=== PATIENT | female | born 2000 | race Caucasian/White ===

== ENCOUNTER 2024-10-22 13:23 | Outpatient (CLI) | payer OTHER, SELFPAY ==
--- OUTSIDE RECORDS SUMMARY | 2024-10-22 13:35 | XMS_ITS | Clinical Summary ---
Author [place] [facility] [place] [address] [place] [address] [address] Address [address] [place] [address] Care Team Providers Care Transport Driver Name Role Phone Brando Rivas MD Primary Care Provider + Allergies Active Allergy Reactions Criticality Noted Date Comments Iodine Itching Low 02/19/2024 Shellfish Nausea only Low 11/13/[address] (PROTONIX) 40 mg EC tablet Take 1 tablet (40 mg total) by mouth daily 30 tablet 11 04/01/2024 Active loratadine (CLARITIN) 10 mg tablet Take 1 tablet (10 mg total) by mouth daily Active ALPRAZolam (XANAX) 0.25 mg tablet 06/24/2024 Active Active Problems Problem Noted Date Diagnosed Date Diaphragmatic hernia with obstruction 03/05/2024 Diaphragmatic hernia with obstruction, without g angrene 02/19/2024 Assessment & Plan (02/19/2024 10:52 AM CDT): Even though she was a small hiatal hernia seen on the scan I favor the symptoms are less likely attributed to this. She was going to bring us the disc so that we can load them and review them ourselves. If the HIDA scan is normal this will leave us in a difficult position of what to do. I have brought up performing an EGD to look for signs of reflux disease or irritation from the small hernia as well as peptic ulcer disease as a cause of the pain. If height and EGD are both normal then we will have to make a tough call about removing the gallbladder as she has fairly classic symptoms for it versus further working up the hiatal hernia and addressing them both at the same time. She was in understanding of the plan. Epigastric pain 02/19/2024 Assessment & Plan (02/19/2024 10:51 AM CDT): The relationship to food as well as , epigastric pain, bloating nausea all leads me to believe that this may be secondary to gallbladder pathology. She states having an ultrasound that was normal so we will begin by ordering a HIDA scan. Once these results returned we will discuss further course of action with the patient Surgical History Surgery Date Site/Laterality Comments TONSILLECTOMY Tonsillectomy OTHER SURGICAL HISTORY right hip arthroscopy TONSILLECTOMY/ADENOIDECTOMY 06/11/2012 - 06/10/2013 OTHER SURGICAL HISTORY Bilateral fallopian tubes removed Family History Medical History Relation Name Comments Arthritis Other Family history of Arthritis; Cancer Other Family history of Cancer, unknown; Diabetes type II Other Family hist ory of Diabetes mellitus type 2; Heart disease Other Family history of Heart problems; Relation Name Status Comments Other Social History Tobacco Use Types Packs/Day Years Used Date Smoking Tobacco: Some Days Vaping Tobacco Cessation:Ready to Q uit: Not Asked; Counseling Given: Not Answered AUDIT-C Answer Date Recorded Q1: How often do you have a drink containing alc ohol? 2-4 times a month 04/01/2024 Q2: How many drinks containi ng alcohol do you have on a typical day when you are drinking? 1 or 2 04/01/2024 Frequency of Binge Drinking Not on file 03/12 Personal Safety Answer Date Recorded Have you ever been in or are you currently in a harmful physical or emotional relationship or is someone making you feel afraid or unsafe? Denies 05/18/2024 Comments No Sex and Gender Information Value Date Recorded Sex Assigned at Not on file Legal Sex Female 3:46 AM [employer] Gender Identity Not on file Sexual Orientation Not on file Obstetrics History Last Filed Vital Signs Vital Sign Reading Time Taken Comments Blood Pressure 118/68 07/05/2024 6:54 PM [employer] Pulse 120 07/05/2024 6:54 PM [employer] Temperature 37.1 C (98.7 F) 07/05/2024 6:54 PM [employer] Respiratory Rate 20 07/05/2024 6:54 PM [employer] Oxygen Saturation 98% 07/05/2024 6:54 PM [employer] Inhaled Oxygen Concentration - - Weight 61.7 kg (136 lb) 07/05/2024 6:54 PM [employer] Height 157.5 cm (5' 2 ) 07/05/2024 6:54 PM [employer] Body Mass Index 24.87 07/05/2024 6:54 PM [employer] Plan of Treatment Health Maintenance Due Date Last Done Comments Cervical Cancer Screening 1998 Depression Screening 1998 Hepatitis C Screening 1998 DTaP/Tdap/Td Vaccine (1 - Tdap) 2009 Varicella Vaccines (1 of 2 - 13+ 2-dose series) 2010 HPV Vaccines (1 - 3-dose series) 2013 Hepatitis B Screening 2016 Regular Well Visit/Exam 18-64 2016 Pneumococcal vaccine <65 (1 of 2 - PCV) 2017 Influenza Vaccine Completed 05/21/2024 Insurance [employer] [facility] Advance Directives For more information, please contact: [phone] * Full Code (Latest Code Status on File) Date Activated Date Inactivated Comments 04/01/2024 12:26 PM 04/01/2024 6:09 PM * Full Code Date Activated Date Inactivated Comments 04/01/2024 12:26 PM 04/01/2024 12:26 PM Care Teams Transport Driver Relationship Specialty Start Date End Date Brando Rivas MD [address] [place] [address] PCP - General Internal Medicine 02/20/24
--- OUTSIDE RECORDS SUMMARY | 2024-10-22 13:35 | XMS_ITS | Referral Summary ---
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[employer] Gender Identity Not on file Sexual Orientation Not on file Last Filed Vital Signs Vital Sign Reading Time Taken Comments Blood Pressure 118/68 07/05/2024 6:54 PM [employer] Pulse 120 07/05/2024 6:54 PM [employer] Temperature 37.1 C (98.7 F) 07/05/2024 6:54 PM MANAGER [employer]PERATING Respiratory Rate 20 07/05/2024 6:54 PM MANAGER [employer]PERATING Oxygen Saturation 98% 07/05/2024 6:54 PM MANAGER [employer]PERATING Inhaled Oxygen Concentration - - Weight 61.7 kg (136 lb) 07/05/2024 6:54 PM MANAGER [employer]PERATING Height 157.5 cm (5' 2 ) 07/05/2024 6:54 PM MANAGER [employer]PERATING Body Mass Index 24.87 07/05/2024 6:54 PM MANAGER [employer]PERATING Plan of Treatment Not on file Insurance [facility] Advance Directives For more information, please contact: [phone] * Full Code (Latest Code Status on File) Date Activated Date Inactivated Comments 04/01/2024 12:26 PM 04/01/2024 6:09 PM * Full Code Date Activated Date Inactivated Comments 04/01/2024 12:26 PM 04/01/2024 12:26 PM Care Teams Licensed Surveyor Relationship Specialty Start Date End Date Brando Rivas MD [address] [place] [address] PCP - General Internal Medicine 02/20/24
--- OUTSIDE RECORDS SUMMARY | 2024-10-22 13:35 | XMS_ITS | Continuity of Care Document ---
Author Name [facility] Organization [facility] Care Team Providers Care Calculator Operator Name Role Phone [facility] Unavailable Unavailable Problems Combined list of problems from Department of Defense and Veterans Affairs facilities. It does not include entries that were removed or entered in error. Problem Status Onset Date Problem Type Date of Resolution Comments Source Anxiety disorder, unspecified Active 05/09/2018 Condition DoD Personal history of urinary calculi Active 11/13/2017 Condition DoD Umbilical hernia without obstruction or gangrene Active 11/13/2017 Condition DoD Abnormal ultrasonic finding on screening of mother Active Condition DoD Sterilization requested Active Condition [facility] [place] Medications Combined list of outpatient medications from Department of Defense and Veterans Affairs facilities.Medications provided include 1) outpatient medications from the last 15 months, and 2) patient-reported medications. Medication Details Route Status Patient Instructions Prescription Expires Prescription Number Last Dispense Date Ordering Provider Order Date Order Qty Source ALPRAZolam 0.25 mg tablet See Instruct ions, Oral, # 60 EA, 2 total refill(s ), Hard Stop Oral (given by mouth) Ordered 12/21/2024 5 2024 60.0 Ambulat ory Pharmac y ibuprofen 600 mg oral tablet 1 tab(s), Oral, every 6 hr, # 40 tab(s), 1 total refill(s ), Marianna drummond, Pharmacy : [facility] Oral (given by mouth) Ordered 4 2023 40.0 [facility] KY[facility] Diallo montelukast 10 mg tablet = 1 tab(s), Oral, every evening, # 90 EA, 3 total refill(s ), Soft Stop Oral (given by mouth) Ordered 5 2024 90.0 Ambulat ory Pharmac y norethindro ne 0.35 mg oral tablet 1 tab(s), Oral, Daily, # 84 tab(s), 0 total refill(s ), Hard Stop, Pharmacy : [id number] Oral (given by mouth) Complet ed 04/25/20232022 84.0 [facility]125[facility] Yoel norethindro ne 0.35 mg oral tablet 1 tab(s), Oral, Daily, # 84 tab(s), 1 total refill(s ), [facility], Pharmacy : [facility] #[id number] Oral (given by mouth) Ordered 2022 84.0 0[facility] KYRA Diallo oxyCODONE 5 mg oral tablet 1 tab(s), Oral, every 6 hr, PRN pain, Take 1 tab up to every 6 hours as needed for pain, # 5 tab(s), 0 total refill(s ), [facility], Pharmacy : [facility] Oral (given by mouth) Ordered 4 2023 5.0 0125C-[facility] Yo[facility] pantoprazol e EC 40 mg tablet = 1 tab(s), Oral, Daily, # 90 EA, 2 total refill(s ), Soft Stop Oral (given by mouth) Ordered 5 2024 90.0 Ambulat ory Pharmac y Tylenol 325 mg oral tablet 2 tab(s), Oral, every 6 hr, # 50 tab(s), 1 total refill(s ), [facility], Pharmacy : [facility] Oral (given by mouth) Ordered 4 2023 50.0 0125C-[facility] [place] Zofran ODT 4 mg oral tablet, disintegrat ing 1 tab(s), Oral, every 8 hr, PRN nausea/v omiting, # 10 tab(s), 1 total refill(s ), [facility], Pharmacy : [facility] Oral (given by mouth) Ordered 4 2023 10.0 [facility] Diallo Allergies, Adverse Reactions, Alerts Combined list of allergies from Department of Defense and Veterans Affairs facilities. It does not include entries that were removed or entered in error. Substance Category Reaction Severity Reaction type Status Date Reported Comments Source IODINE Drug allergy (disorder) active 4 DoD iodine containing compounds Drug allergy Urticaria (Hives) Moderate [facility] OTHER {Cla } Drug allergy (disorder) Swelling / lump finding active 8 [place], [place] SHELLFISH Food allergy (disorder) active 8 [facility] shellfish Propensity to adverse reactions to substance Vomiting Active 8 Unknown Organizati on SHELLFISH CONTAINING PRODUCTS {Cla } Food allergy (disorder) Vomiting active 8 [place], [place] Immunizations Combined list of available immunizations from the Department of Defense and Veterans Affairs facilities. Immunization Series Date Given Administered By Site Reaction Lot Number CVX Code Drug Clinical Research Manager Status Comments Source Influenza, injectable, quadrivalent, preservative free 1 2021 [facility] SALAS [id number] [facility] Influenza , injectabl e, quadrival ent, preservat storm free DoD SARS-COV-2 (COVID-19) vaccine, mRNA, spike protein, LNP, preservative free, 100 mcg or 50 mcg dose 3 2021 AMPARO GERMAN [id number] 207 [employer] (MOD) complet ed SARS-COV- 2 (COVID-19 ) vaccine, mRNA, spike protein, LNP, preservat storm free, 100 mcg or 50 mcg dose DoD Influenza, injectable, quadrivalent, preservative free 1 2020 OSITO GALLEGO [id number] 150 Other (OTH) complet ed Influenza , injectabl e, quadrival ent, preservat storm free DoD SARS-COV-2 (COVID-19) vaccine, mRNA, spike protein, LNP, preservative free, 100 mcg or 50 mcg dose 2 2020 [id number] 207 [employer] (MOD) complet ed SARS-COV- 2 (COVID-19 ) vaccine, mRNA, spike protein, LNP, preservat storm free, 100 mcg or 50 mcg dose DoD SARS-COV-2 (COVID-19) vaccine, mRNA, spike protein, LNP, preservative free, 100 mcg or 50 mcg dose 1 2020 ASAEL MARCELO V [id number] 207 [employer] (MOD) complet ed SARS-COV- 2 (COVID-19 ) vaccine, mRNA, spike protein, LNP, preservat storm free, 100 mcg or 50 mcg dose DoD rabies vaccine, purified chick embryo 2019 zzLef t Arm [id number] A;12/30 176 [employer] complet ed rabies vaccine, purified chick embryo 10/03/19 Given Ambulat ory Pharmac y Human rabies vaccine from Chicken fibroblast culture 1 2019 MATILDA ANDINO [id number] A;12/30 176 [facility] complet ed Human rabies vaccine from Chicken fibroblas t culture DoD rabies vaccine, IM 2019 zzLef t Arm [id number] 175 [employer] complet ed rabies vaccine, IM 09/30/19 Given Ambulat ory Pharmac y rabies vaccine, for intramuscular injection RETIRED CODE 1 2019 RICK LONDON [id number] 18 [facility] ([facility]) complet ed rabies vaccine, for intramusc ular injection RETIRED CODE DoD tetanus, diphtheria, acellular pertu is 2018 zzLef t Arm 525NP 115 [employer] complet ed tetanus, diphtheri a, acellular pertussis 01/02/19 Given Ambulat ory Pharmac y tetanus toxoid, reduced diphtheria toxoid, and acellular pertu is vaccine, adsorbed 1 2018 CECILIO BEST 525NP 115 [facility] ([facility]) complet ed tetanus toxoid, reduced diphtheri a toxoid, and acellular pertussis vaccine, adsorbed DoD tuberculin purified protein derivative 2017 zzLef t Arm [id number] 11/02/18 96 Unknown complet ed Patient Tolerance : Negative Ambulat ory Pharmac y tuberculin skin test; purified protein derivative solution, intradermal 1 2017 LISBET RAMIREZ [id number] 11/02/18 96 Unknown (UNK) complet ed tuberculi n skin test; purified protein derivativ e solution, intraderm al DoD Results Combined list of recent chemistry, hematology and other laboratory results from Department of Defense and Veterans Affairs, ranging from 15 months to all on record, depending upon the facility. Order Name Results Value Reference Range Date Interpretation Specimen Comments Source AP Specimen s AP Cyto CHEF SAUCIER Patient: Phan Hartmann Specimen #: [id number] Patholog ist: Accessio n: 4 [facility] DEPARTVT NT OF PATHOLOG Y [address] [place] [address] Tel: Fax: Cytology Gynecolo gic Report Patient: Phan Hartmann Specimen #: [id number] [facility] 09 Encounte r #: [id number] Taken: 4 10:47 /Age: 10 8 (Age: 23) Received : 4 07:49 Physicia n(s:): ARIEL HONEYCUTT Reported : 4 Specimen (s) Received Taken Rec Endocerv ical Cytology , Liquid Based 4 10:47 4 07:49 Final Diagnosi s Endocerv ical Cytology , Liquid Based: Satisfac tory for evaluati on; endocerv ical componen t present. Negative for intraepi thelial lesion or malignan cy. Comments This Pap test was evaluate d with the assistan ce of the Thin Prep Imaging System. Elect ronicall y Signed by Garo Ahn, CT (ASCP), MLS (AMT) Clinical Diagnosi s and History 23yo with NILM pap in 2018, had a pap at an outside hospital in 2020 thinks it was NILM Prior History Signed Out Specimen # Interpre tation 05/19/20 19 [id number] 04 Negative for intraepi thelial lesion EACH CPT Codes: A; 22218 The Pap test is a screenin g test for precurso rs of squamous cell carcinom a with an irreduci ble false negative rate of around 5%. It is not designed to detect glandula r lesions. A negative test does not ensure that no disease is present. 07/[address] [place] [address] AP Specimen s AP Surgical Pathology Patient: Phan Hartmann Specimen #: [id number] Patholog ist: MAJ Osito Kumar MD Accessio n: 4 [facility] DEPARTVT NT OF PATHOLOG Y [address] [facility] [place] [address] Tel: Fax: Surgical Patholog y Report Patient: Phan Hartmann Specimen #: [id number] [facility] 09 Encounte r #: [id number] Taken: 4 08:30 /Age: 10 8 (Age: 23) Received : 4 10:25 Physicia n(s): ARIEL HONEYCUTT Reported : 4 Specimen (s) Received Taken Rec BILATERA L FALLOPIA N TUBES 4 08:30 4 10:25 Final Diagnosi s Fallopia n tubes, bilatera l, elective steriliz ation: - Two segments of fallopia n tube with no signific ant patholog ic change - Full cross section of lumina identifi ed Elect ronicall y Signed nehemias/06/29 PANDA Osito Kumar MD Clinical Diagnosi s and History 23 y/o female with undesire d fertilit y. Pre-Oper ative Diagnosi s Undesire d fertilit y. Post-Ope rative Diagnosi s Same as above. Gross Descript ion Received in formalin labeled with the patient' s name, Phan Hartmann and designat ed bilater al fallopia n tubes are 2 segments of fimbriat ed fallopia n tube measurin g 5.5 and 7.0 cm in length. The segments of fallopia n tube are up to 0.8 cm in diameter . The serosal surfaces are rizvi to purple, smooth, and dull. Masses, nodules, or cysts are not grossly identifi ed. Cross-se ctions of both segments of fallopia n tube reveal a grossly unremark able pinpoint lumen. The fimbriat ed ends of both segments of fallopia n tube are submitte d in their entirety . Summary sections : A1: Bisected fimbriat ed end and cross-se ctions of shorter segment of fallopia n tube. A2: Bisected fimbriat ed end and cross-se ctions of longer segment of fallopia n tube. 2 SS. NEHEMIAS CPT Codes: A; 09865 06/22 [facility] [place] Chemistr y Beta hCG, Urine Qual Neg 1 (06/22/23 5:52 AM) 06/22 N Interpretiv e Data: This test may exhibit interferenc e when sample is collected from a person who is consuming a supplement with a high dose of biotin (also termed as vitamin B7 or B8, vitamin H, or coenzyme R). It is recommended to ask all patients who may be indicated for this test about biotin supplementa tion. Patients should be cautioned to stop biotin consumption at least 72 hours prior to the collection of a sample. [facility] [place] Chemistr y POC U HCG Neg (06/20/23 10:05 AM) 06/[address] [place], [place] [address]igan Hematolo gy MCH 29.9 pg 26.7 - 33.7 03/[address] [place], [place] [address]igan Hematolo gy MCHC 34.1 g/dL 32.5 - 37.5 03/[address] [place], [place] [address]igan Hematolo gy Differenti al? Auto (03/14/23 2:45 PM) 03/14 N [facility] [place] Hematolo gy MCV 88 fL 80 - 98 03/14 [facility] WBC 5.3 10^3/uL 4.5 - 13.0103 03/14 N [facility] Platelets 172 10^3/uL 140 - [id number] 03/[address] [place], [place] [address]igan Hematolo gy RBC 5.09 10^6/uL 3.80 - 5.76182 03/14 N [facility] [place] Hematolo gy MPV 12.6 fL 7.0 - 12.0 03/14 H [facility] Hemoglobin 15.2 g/dL 10.0 - 15.0 03/14 H [facility] Hematocrit 45 % 34 - 45 03/14 N [facility] RDW 12.5 % 11.5 - 15.0 03/[address] [place], [place] [address]igan Hematolo gy Lymph Absolute 2.31 10^3/uL 0.90 - 3.86183 03/14 N [facility] Yoel Hematolo gy Baso Absolute 0.02 10^3/uL 0.00 - 0.81070 03/[address] [place], [place] [address]igan Hematolo gy Neutro Absolute 2.50 10^3/uL 1.50 - 10.90106 03/[address] [place] [address] Hematolo gy nRBC Absolute 0.00 10^3/uL 0.00 - 2.38816 03/[address] [place] [address] Hematolo gy nRBC % Auto 0.0 % 0.0 - 5.0 03/[address] [place] [address] Hematolo gy Imm. Granulocyt e Absolute 0.00 10^3/uL 0.00 - 2.24497 03/[address] Hematolo gy Eosinophil % Auto 1.3 % 0.0 - 7.4 03/[address] Hematolo gy Imm. Granulocyt e % 0.0 % 0.0 - 2.0 03/[address] Hematolo gy Basophil % Auto 0.4 % 0.0 - 2.5 03/[address] Hematolo gy Monocyte % Auto 7.7 % 3.0 - 13.0 03/[address] Hematolo gy Lymphocyte % Auto 43.5 % 14.0 - 46.0 03/[address] Hematolo gy [place] Absolute 0.41 10^3/uL 0.20 - 0.19730 03/[address] Hematolo gy Neutrophil % Auto 47.1 % 38.5 - 76.5 03/[address] Hematolo gy Eos Absolute 0.07 10^3/uL 0.00 - 0.05390 03/[address] Vital Signs Combined list of inpatient and outpatient Vital Signs from Department of Defense and Veterans Affairs, ranging from 12 months to all on record, depending upon the facility. Vital Sign Value Date Comments Source Systolic Blood Pressure 115 mm[Hg] 06/22/2023 17:05:[address] [place] [address] [place] Diastolic Blood Pressure 79 mm[Hg] 06/22/2023 17:05:00 [facility] [place] Blood Pressure Method Automatic 06/22/2023 17:05:00 [facility] [place] Mean Arterial Pressure, Calc 91 mm[Hg] 06/22/2023 17:05:00 [facility] Heart Rate Monitored 95 bpm 06/22/2023 17:05:00 [facility] [place] Peripheral Pulse Rate 95 bpm 06/22/2023 17:05:00 [facility] [place] Respiratory Rate 14 br/min 06/22/2023 17:05:00 [facility] [place] Cuff Size Medium 06/22/2023 17:05:00 [facility] [place] Blood Pressure Location Left arm 06/22/2023 17:05:00 [facility] [place] Blood Pressure Manual Automatic 06/20/2023 18:16:00 [facility] [place] Temperature Oral 36.8 Anais 06/20/2023 18:16:00 012-[facility] [place] BP Site Left arm 06/20/2023 18:16:00 012 -[facility] [place] Cuff Size Medium 06/22/2023 16:55:00 [facility] [place] Blood Pressure Location Left arm 06/22/2023 16:55:00 [facility] [place] Systolic Blood Pressure 117 mm[Hg] 06/22/2023 16:55:00 [facility] [place] Diastolic Blood Pressure 87 mm[Hg] 06/22/2023 16:55:00 [facility] [place] Respiratory Rate 15 br/min 06/22/2023 16:55:00 [facility] [place] Peripheral Pulse Rate 103 bpm 06/22/2023 16:55:00 [facility] [place] Heart Rate Monitored 110 bpm 06/22/2023 16:55:00 [facility] [place] Mean Arterial Pressure, Calc 97 mm[Hg] 06/22/2023 16:55:00 [facility] Blood Pressure Method Automatic 06/22/2023 16:55:00 [facility] [place] Systolic Blood Pressure 126 mm[Hg] 06/22/2023 17:15:00 [facility] [place] Diastolic Blood Pressure 82 mm[Hg] 06/22/2023 17:15:00 [facility] [place] Respiratory Rate 26 br/min 06/22/2023 17:15:00 [facility] [place] Blood Pressure Method Manual 06/22/2023 17:15:00 [facility] [place] Cuff Size Medium 06/22/2023 17:15:00 [facility] [place] Blood Pressure Location Left arm 06/22/2023 17:15:00 [facility] [place] Mean Arterial Pressure, Calc 97 mm[Hg] 06/22/2023 17:15:00 [facility] Temperature Temporal Artery 36.7 Anais 06/22/2023 17:15:00 [facility] [place] Peripheral Pulse Rate 87 bpm 06/22/2023 17:15:00 [facility] [place] Heart Rate Monitored 91 bpm 06/22/2023 17:15:00 [facility] [place] Temperature Temporal Artery 36.1 Anais 06/22/2023 16:45:00 [facility] [place] Systolic Blood Pressure 123 mm[Hg] 06/22/2023 16:45:00 [facility] [place] Diastolic Blood Pressure 73 mm[Hg] 06/22/2023 16:45:00 [facility] [place] Mean Arterial Pressure, Calc 90 mm[Hg] 06/22/2023 16:45:00 [facility] Peripheral Pulse Rate 100 bpm 06/22/2023 16:45:00 [facility] [place] Blood Pressure Method Automatic 06/22/2023 16:45:00 [facility] [place] Blood Pressure Location Left arm 06/22/2023 16:45:00 [facility] [place] Cuff Size Medium 06/22/2023 16:45:00 [facility] [place] Respiratory Rate 12 br/min 06/22/2023 16:45:00 [facility] [place] Blood Pressure Manual Automatic 03/13/2023 22:05:00 [facility] [place] [place] Temperature Oral 37.0 Anais 03/13/2023 22:05:00 [facility] [place] BP Site Left arm 03/13/2023 22:05:00 0125C -[facility] [place] Temperature Temporal Artery 36.5 Anais 06/22/2023 14:03:00 [facility] [place] Cuff Size Medium 06/22/2023 16:50:00 [facility] [place] Blood Pressure Method Automatic 06/22/2023 16:50:00 [facility] [place] Blood Pressure Location Left arm 06/22/2023 16:50:00 [facility] [place] Respiratory Rate 11 br/min 06/22/2023 16:50:00 [facility] [place] Systolic Blood Pressure 135 mm[Hg] 06/22/2023 16:50:00 [facility] [place] Diastolic Blood Pressure 90 mm[Hg] 06/22/2023 16:50:00 [facility] [place] Peripheral Pulse Rate 114 bpm 06/22/2023 16:50:00 [facility] [place] Heart Rate Monitored 116 bpm 06/22/2023 16:50:00 [facility] [place] Mean Arterial Pressure, Calc 105 mm[Hg] 06/22/2023 16:50:00 [facility] Systolic Blood Pressure 124 mm[Hg] 06/22/2023 17:10:00 [facility] [place] Diastolic Blood Pressure 80 mm[Hg] 06/22/2023 17:10:00 [facility] [place] Heart Rate Monitored 100 bpm 06/22/2023 17:10:00 [facility] [place] Respiratory Rate 18 br/min 06/22/2023 17:10:00 [facility] [place] Blood Pressure Method Automatic 06/22/2023 17:10:00 [facility] [place] Cuff Size Medium 06/22/2023 17:10:00 [facility] [place] Blood Pressure Location Left arm 06/22/2023 17:10:00 [facility] [place] Mean Arterial Pressure, Calc 95 mm[Hg] 06/22/2023 17:10:00 [facility] Peripheral Pulse Rate 93 bpm 06/22/2023 17:10:00 [facility] [place] Mean Arterial Pressure, Calc 109 mm[Hg] 06/22/2023 17:20:00 [facility] Blood Pressure Method Automatic 06/22/2023 17:20:00 [facility] [place] Blood Pressure Location Left arm 06/22/2023 17:20:00 [facility] [place] Cuff Size Medium 06/22/2023 17:20:00 [facility] [place] Systolic Blood Pressure 135 mm[Hg] 06/22/2023 17:20:00 [facility] [place] Diastolic Blood Pressure 96 mm[Hg] 06/22/2023 17:20:00 [facility] [place] Temperature Temporal Artery 36.3 Anais 06/22/2023 17:20:00 [facility] [place] Respiratory Rate 16 br/min 06/22/2023 17:20:00 [facility] [place] Heart Rate Monitored 88 bpm 06/22/2023 17:20:00 [facility] [place] Peripheral Pulse Rate 87 bpm 06/22/2023 17:20:00 [facility] [place] Blood Pressure Method Automatic 06/20/2023 18:00:00 [facility] [place] Blood Pressure Location Left arm 06/20/2023 18:00:00 [facility] [place] [place] Cuff Size Medium 06/20/2023 18:00:00 0[facility] -[facility] [place] Blood Pressure Method Automatic 06/22/2023 17:40:00 [facility] [place] Cuff Size Medium 06/22/2023 17:40:00 [facility] [place] Blood Pressure Location Left arm 06/22/2023 17:40:00 [facility] [place] Respiratory Rate 16 br/min 06/22/2023 17:40:00 [facility] [place] Systolic Blood Pressure 140 mm[Hg] 06/22/2023 17:40:00 [facility] [place] Diastolic Blood Pressure 90 mm[Hg] 06/22/2023 17:40:00 [facility] [place] Peripheral Pulse Rate 79 bpm 06/22/2023 17:40:00 [facility] [place] Heart Rate Monitored 79 bpm 06/22/2023 17:40:00 [facility] [place] Mean Arterial Pressure, Calc 107 mm[Hg] 06/22/2023 17:40:00 [facility] Temperature Temporal Artery 36.8 Anais 06/22/2023 17:40:00 [facility] [place] Systolic Blood Pressure 106 mm[Hg] 06/22/2023 17:00:00 [facility] [place] Diastolic Blood Pressure 85 mm[Hg] 06/22/2023 17:00:00 [facility] [place] Blood Pressure Method Automatic 06/22/2023 17:00:00 [facility] [place] Mean Arterial Pressure, Calc 92 mm[Hg] 06/22/2023 17:00:00 [facility] Peripheral Pulse Rate 98 bpm 06/22/2023 17:00:00 [facility] [place] Respiratory Rate 16 br/min 06/22/2023 17:00:00 [facility] [place] Heart Rate Monitored 103 bpm 06/22/2023 17:00:00 [facility] [place] Cuff Size Medium 06/22/2023 17:00:00 [facility] [place] Blood Pressure Location Left arm 06/22/2023 17:00:00 [facility] [place] Respiratory Rate 16 br/min 07/09/2023 18:12:00 [facility] [place] Peripheral Pulse Rate 89 bpm 07/09/2023 18:12:00 012-[facility] [place] Mean Arterial Pressure, Calc 94 mm[Hg] 07/09/2023 18:12:00 012-[facility] [place] Ma digan Blood Pressure Manual Automatic 07/09/2023 18:12:00 012-[facility] [place] BP Site Left arm 07/09/2023 18:12:00 0[facility]C -[facility] [place] Systolic Blood Pressure 113 mm[Hg] 07/09/2023 18:12:00 [facility] [place] Diastolic Blood Pressure 85 mm[Hg] 07/09/2023 18:12:00 [facility] [place] Temperature Oral 36.4 Anais 07/09/2023 18:12:00 012-[facility] [place] Encounters Combined list of: 1) Encounters from Department of Veterans Affairs facilities going backup to the last 18 months, not all VA inpatient encounters are included; 2) Encounters from the Department of Defense facilities going backup to 280 months. Location Location Details Encounter Type Encounter Number Reason For Visit Attending Provider ADM Date DC Date Status Disposition Source JERRY Manuel([facility]) OUTPATIENT [id number] GÓMEZ PORTILLO 10/27 Released w/o Limitations JERRY Manuel([facility]) JERRY Manuel([facility]) OUTPATIENT [id number] REMI HAW 11/02 Released w/o Limitations JERRY Manuel([facility]) JERRY Manuel([facility]) OUTPATIENT [id number] YULIET MEDELLIN 11/10 Sick at Home/Quarter s JERRY Manuel([facility]) JERRY Manuel([facility] 2) OUTPATIENT [id number] f/u kidney stones and hernia BRODY EPSTEIN 11/12 Released w/o Limitations JERRY Manuel([facility] 2) JERRY Manuel([facility]) OUTPATIENT [id number] APRIL BERNAL 12/02 Released w/o Limitations JERRY Manuel([facility]) JERRY Manuel([facility] 2) TELE CONSULT [id number] BARTOLO GODOY 12/26 Referred for Appointment JERRY Manuel([facility] M[facility] IAC 2) JERRY Manuel([facility]) TELE CONSULT [id number] Notes Entered by: JOSÉ MIGUEL HERRERA 07 Feb 2018 1022 ------- ------- ------- ------- -- asking for results . wcb JASPREET NEWELL 02/07 Released w/o Limitations [facility]) [facility] OUTPATIENT [id number] PAP CONNER BORJAS 03/05 Released w/o Limitations JERRY Manuel([facility]) [facility] TELE CONSULT [id number] Notes Entered by: VANESSA KELLY 11 Mar 2018 1251 ------- ------- ------- ------- -- tests CONNER BORJAS 03/11 JERRY Manuel([facility]) JERRY Manuel([address] 2) OUTPATIENT [id number] walk in PPD DEANN SHANON A 03/11 Released w/o Limitations JERRY Manuel([facility] I[facility] 2) JERRY Manuel([address] 2) OUTPATIENT [id number] walk in PPD read DEANN, SHANON A 03/13 Released w/o Limitations JERRY Manuel([address] IAC 2) JERRY Manuel([facility]) OUTPATIENT [id number] APRIL BERNAL 04/01 Immediate Referral JERRY Manuel([facility]) [facility]) OUTPATIENT [id number] APRIL BERNAL 04/01 Released w/o Limitations JERRY Manuel([facility]) JERRY Manuel([address] IAC 2) TELE CONSULT [id number] Notes Entered by: CHRIST JONES 02 Apr 2018 1323 ------- ------- ------- ------- -- transit ions of care CHRIST JONES 04/02 Referred for Appointment JERRY Manuel([address]) JERRY Manuel([address]) OUTPATIENT [id number] follow up from ER visit 22Oct-c old SHANON ZACARIAS A 04/05 Released w/o Limitations JERRY Manuel([facility] 2) JERRY Manuel([address] 2) OUTPATIENT [id number] medicat ion follow up SHANON ZACARIAS A 04/24 Released w/o Limitations JERRY Manuel([facility] I[facility] 2) JERRY Manuel([facility] M01A [facility] 1) OUTPATIENT [id number] Consult on anxiety SAUD DAWSON 05/09 Released w/o Limitations JERRY Manuel([facility] M01A IAC 1) JERRY Manuel([facility] M01B [facility] 2) OUTPATIENT [id number] medicat ion review; change meds SHANON ZACARIAS 05/27 Released w/o Limitations JERRY Manuel([facility] M01B IAC 2) JERRY Manuel([facility] 2) OUTPATIENT [id number] f/u medicat ion SHANON ZACARIAS 06/19 Released w/o Limitations JERRY Manuel([facility] 2) JERRY Manuel([facility]) TELE CONSULT [id number] Notes Entered by: Yaquelin VLEASQUEZ 08 Jul 2018 1308 ------- ------- ------- ------- -- HCG Results EDWIN DANIEL R 07/08 Released w/o Limitations JERRY Manuel([facility]) [facility] OUTPATIENT [id number] NEIDA GAY 07/24 Released w/o Limitations JERRY Manuel([facility]) JERRY Manuel([facility] 2) TELE CONSULT [id number] Notes Entered by: CHRIST JONES 24 Jul 2018 0941 ------- ------- ------- ------- -- transit ion care CHRIST JONES 07/24 Referred for Appointment JERRY Manuel([facility] M01B [facility] 2) JERRY Manuel([facility]) OUTPATIENT [id number] ANNE-MARIE MADERA 07/25 Released w/o Limitations JERRY Manuel([facility]) JERRY Manuel([facility]) OUTPATIENT [id number] KALPANA HURT 08/02 Released w/o Limitations JERRY Manuel([facility]) JERRY Manuel([facility]) TELE CONSULT [id number] Notes Entered by: SHAUN SANTIAGO 02 Aug 2018 1044 ------- ------- ------- ------- -- MFM appoint ment MAYDA SANTIAGO 08/02 Released to Self Care JERRY Manuel([facility]) [facility]) OUTPATIENT [id number] REMI HA 08/05 Released w/o Limitations JERRY Manuel([facility]) JERRY Manuel([facility]) OUTPATIENT [id number] APRIL BERNAL 08/24 Immediate Referral JERRY Manuel([facility]) JERRY Manuel([facility]) OUTPATIENT [id number] APRIL BERNAL 08/24 Released w/o Limitations JERRY Manuel([facility]) JERRY Manuel([facility]) TELE CONSULT [id number] Notes Entered by: DEDE TRUJILLO 11 Sep 2018 1531 ------- ------- ------- ------- -- Network Results - [facility] 9 [place] 09/11 JERRY Manuel([facility]) JERRY Manuel([facility]) OUTPATIENT [id number] K[place] 09/13 Released w/o Limitations JERRY Manuel([facility]) JERRY Manuel([facility]) TELE CONSULT [id number] Notes Entered by: Chaparro TIPTON 19 Sep 2018 1509 ------- ------- ------- ------- -- Network Results - OB Report- 9 [place] 09/19 JERRY Manuel([facility]) JERRY Manuel([facility]) TELE CONSULT [id number] Notes Entered by: DEDE TRUJILLO 03 Oct 2018 1511 ------- ------- ------- ------- -- Network Results - [facility] 9 [place] 10/03 JERRY Manuel([facility]) JERRY Manuel([facility]) TELE CONSULT [id number] Notes Entered by: DEDE TRUJILLO 10 Oct 2018 1435 ------- ------- ------- ------- -- Network Results - [facility] 9 [place] 10/10 JERRY Manuel([facility]) [id number]|2024-10-22 13:35:00|2024-10-22 13:34:00|XMS_ITS|WILSON REDMOND|External Medical Summaries|[id number]|" Clinical Summary Created on: October 22, 2024 Phan Hartmann : 2000 Sex: Female Author Organization [facility] Address [address] [place] [address] Phone Care Team Providers Care Calculator Operator Name Role Phone Brando Rivas MD Primary Care Provider [phone] Allergies Active Allergy Reactions Criticality Noted Date Comments Shellfish Allergy Anaphylaxis 12/08/2023 Medications No known medications Encounters Date Type Department Care Team Description 07/31/2024 9:37 PM WELD FITTER - 07/31/2024 11:05 PM WELD FITTER Emergency [facility] Emergency [address] [place] [address] Nely Cuevas APRN, CNP Viral illness Discharge Disposition: Discharged to home or Selfcare 07/31/2024 Travel from Last 3 Months Social History Tobacco Use Types Packs/Day Years Used Date Smoking Tobacco: Never Smokeless Tobacco: Never Tobacco Cessation:Counseling Given: Not Answered Comments No Sex and Gender Information Value Date Recorded Sex Assigned at Not on file Legal Sex Female 10:21 PM CDT Gender Identity Not on file Sexual Orientation Not on file Last Filed Vital Signs Vital Sign Reading Time Taken Comments Blood Pressure 133/93 07/31/2024 9:34 PM WELD FITTER Pulse 106 07/31/2024 9:34 PM WELD FITTER Temperature 37.9 C (100.3 F) 07/31/2024 9:34 PM WELD FITTER Respiratory Rate 16 07/31/2024 9:34 PM WELD FITTER Oxygen Saturation 100% 07/31/2024 9:34 PM WELD FITTER Inhaled Oxygen Concentration - - Weight 60.8 kg (134 lb) 07/31/2024 9:34 PM WELD FITTER Height 157.5 cm (5' 2 ) 07/31/2024 9:34 PM WELD FITTER Body Mass Index 24.51 07/31/2024 9:34 PM WELD FITTER Plan of Treatment Health Maintenance Due Date Last Done Comments Hepatitis C Virus (HCV) Screening 2000 Human Papillomavirus (HPV) Immunization (1 - 3-dose series) 2013 Hepatitis B Immunization (1 of 3 - 19+ 3-dose series) 2017 Pap Smear 04/14/2022 04/14/2019 SARS-COV-2 Immunization (4 - season) 2024 07/04/2021, 10/30/2020, 10/03/2020 Influenza Immunization (Seas on Ended) 2025 04/25/2022, 04/16/2021 Respiratory Syncytial Virus (RSV) Immunization (Adult) (1 - 1-dose 75+ series) 2073 TdaP Immunization Completed 01/02/2019 Meningococcal Immunization (ACWY) Aged Out No longer eligible b ased on patient's age to complete this topic Pneumococcal Immunization Combined Aged Out No longer eligible b ased on patient's age to complete this topic Rotavirus Immunization Aged Out No lo nger eligible based on patient's age to complete this topic Procedures Procedure Name Priority Date/Time Associated Diagnosis Comments GROUP A STREP BY PCR STAT 07/31/2024 9:38 PM WELD FITTER RSV,SARS-COV-2,INFL UENZA A&B BY PCR STAT 07/31/2024 9:38 PM WELD FITTER from Last 3 Months Results * GROUP A STREP BY PCR (07/31/2024 9:38 PM WELD FITTER) GROUP A STREP BY PCR NOT DETECTED NOT DETECTED 07/31/2024 10:16 PM WELD FITTER [facility] Swab STRUCTURE OF ANTERIOR PORTION OF NECK / Unknown Non-Phlebotomy Collection / Unknown 07/31/2024 9:38 PM WELD FITTER 07/31/2024 9:50 PM WELD FITTER us Marcello Huang MD MICROBIOLOGY - GENER AL ORDERABLES Final Result [facility] [address] [place] [address] * RSV,SARS-COV-2,INFLUENZA A&B BY PCR (07/31/2024 9:38 PM WELD FITTER) FLU A Negative Negative, Error 07/31/2024 10:30 PM WELD FITTER [facility] FLU B Negative Negative 07/31/2024 10:30 PM WELD FITTER [facility] RESP SYNC VIRUS Negative Negative 10:30 PM WELD FITTER [facility] SARSCOV2 NOT DETECTED (Reference Range for this test is Not Detected) 07/31/2024 10:30 PM WELD FITTER [facility] Comment:This test was perfor med by a Reverse Systems Technician PCR Method. Swab NASOPHARYNGEAL STRUCTURE / Unknown Non-Phlebotomy Collection / Unknown 07/31/2024 9:38 PM WELD FITTER 07/31/2024 9:50 PM WELD FITTER us Marcello Huang MD MICROBIOLOGY - GENER AL ORDERABLES Final Result [facility] [address] [place] [address] from Last 3 Months Insurance [facility] Care Teams Calculator Operator Relationship Specialty Start Date End Date Brando iRvas MD [address] [id number] PCP - General Internal Medicine 01/27/24 "
[2024-10-22 18:41] LABS: Hemoglobin A1C 4.6 % (<5.7)
[2024-10-23 05:44] LABS: Progesterone 14.2 ng/mL
[2024-10-24 14:14] LABS: Insulin Level Total 15.6 uIU/mL
[2024-10-26 16:03] LABS: Testosterone Total 30 ng/dL (2-45)
[2024-10-28 20:13] LABS: Free Insulin 10.8 uIU/mL (1.5-14.9)
[2024-11-05 23:19] LABS: Estradiol, Ultrasensitive 198 pg/mL
== END 2024-10-22 13:24 | disposition home or self-care (01) ==
LOC: ANHLAB 13:24
PROVIDERS: PCP Internal Medicine; Visit Provider Student in an Organized Health Care Education/Training Program
DX: N92.6 Irregular menstruation, unspecified (principal); E28.2 Polycystic ovarian syndrome
CPT/HCPCS: 36415; 82670; 83001; 83036; 83525; 83527; 84144; 84403; 84443